=== PATIENT | female | born 1995 | race Caucasian/White ===

== ENCOUNTER → 2017-02-11 21:53 | Observation (INO) ==
[2017-02-11 20:11] LABS: Bilirubin,Urine Negative (Negative); Blood,Urine Negative (Negative); Clarity,Urine Cloudy (Clear); Color,Urine Yellow (Yellow); Glucose,Urine (UA) Normal (Normal); Ketones,Urine Negative (Negative); Leukocyte Esterase,Urine Moderate (Negative); Nitrite,Urine Negative (Negative); PH,Urine 6.5 pH Units (5.0-8.0); Protein,Urine Negative (Neg-Trace); Specific Gravity,Urine 1.006 (1.010-1.025); Urobilinogen,Urine Normal (Normal)
[2017-02-11 20:13] LABS: Bacteria,Urine Few per hpf (None-Few); Hyaline Casts,Urine None Seen per lpf (None-Few); Squamous Epithelial Cell,Urine Many per lpf (None-Few)
[2017-02-11 20:31] LABS: RBC,Urine 0-3 per hpf (0-3)
--- NOTE | 2017-02-11 20:50 | OB/GYN Progress Note ---
Date of Encounter: 02/11/17 Time of Encounter: 20:43 - Assessment and Plan (1) 30 weeks gestation of Current Visit: Yes Status: Acute (2) Uterine contractions Current Visit: Yes Status: Acute no contractions seen on monitor. Abdomen soft and non-tender to touch. no contractions palapated by CNM ekg monitor tech. cervical exam 0.5/long/posterior/-3 UA negative. Will recheck in 1 hour. if no change will discharge home. Discussed with Dr. Couch Subjective - Subjective Interval history: 3-+6 presents to triage with complaints of occasional contractions since 1700 this evening. Pt states she is feeling pain every 2-4 minutes that is sharp and takes her breath away. Reports good movement, denies vaginal bleeding, or leaking of fluid. No recent in intercourse. Antepartum ROS: new complaints, movement normal, contractions, no loss of fluid, no vaginal bleeding Objective - Vital Signs Vital Signs: Intake and Output 02/11/17 02/11/17 02/11/17 07:59 15:59 23:59 Other: Weight 74.2 kg Patient Weight 02/11/17 23:59 Weight 74.2 kg - Exam FHR: auscultation normal FHR comments: 150/moderate/+accels/-decels Abdomen: Present: soft, gravid Uterus: Present: normal Cervical dilation: 0.5/long/posterior/ -3 - Labs Labs: Abnormal lab results Urine Clarity Cloudy (Clear) A 02/11/17 20:00 Ur Specific [place] 1.006 (1.010-1.025) L 02/11/17 20:00 Ur Leukocyte Esterase Moderate (Negative) H 02/11/17 20:00 Urine Microscopic WBC 5-15 per hpf (0-3) H 02/11/17 20:00 Ur Squamous Epith Cells Many per lpf (None-Few) H 02/11/17 20:00 Ur Culture Indicated? YES (NO) A 02/11/17 20:00
== END | disposition home or self-care (01) ==
LOC: 1NENULAB
PROVIDERS: ADMIT Advanced Practice Midwife; ATTEND Advanced Practice Midwife

== ENCOUNTER → 2017-03-30 22:31 | Observation (INO) ==
[2017-03-30 20:16] LABS: Bilirubin,Urine Negative (Negative); Blood,Urine Negative (Negative); Clarity,Urine Cloudy (Clear); Color,Urine Yellow (Yellow); Glucose,Urine (UA) Normal (Normal); Ketones,Urine Negative (Negative); Leukocyte Esterase,Urine Moderate (Negative); Nitrite,Urine Negative (Negative); PH,Urine 6.5 pH Units (5.0-8.0); Protein,Urine Negative (Neg-Trace); Specific Gravity,Urine 1.007 (1.010-1.025); Urobilinogen,Urine Normal (Normal)
[2017-03-30 20:19] LABS: Bacteria,Urine Few per hpf (None-Few); Hyaline Casts,Urine None Seen per lpf (None-Few); RBC,Urine 0-3 per hpf (0-3); Squamous Epithelial Cell,Urine Many per lpf (None-Few); WBC,Urine 30-50 per hpf (0-3)
[2017-03-30 20:41] LABS: Amphetamine Screen,Urine Negative ng/mL (Cutoff=1000); Barbiturate Screen,Urine Negative ng/mL (Cutoff=200); Benzodiazepines Screen,Urine Negative ng/mL (Cutoff=200); Cannabinoid Screen,Urine Negative ng/mL (Cutoff = 50); Cocaine Screen,Urine Negative ng/mL (Cutoff= 300); Opiate Screen,Urine Negative ng/mL (Cutoff=300); Phencyclidine Screen,Urine Negative ng/mL (Cutoff=25)
--- NOTE | 2017-03-30 21:05 | OB/GYN Progress Note ---
Date of Encounter: 03/30/17 Time of Encounter: 21:03 - Assessment and Plan (1) 37 weeks gestation of Current Visit: Yes Status: Acute Admit to L&D for observation and labor evaluation. (2) Vaginal discharge during in third trimester Current Visit: Yes Status: Acute Nitrazine for ROM Vaginosis panel (3) Non-stress test reactive Current Visit: Yes Status: Acute FHR 135 bpm, moderate variability, +15x15 accels, no decels. Subjective - Subjective Principal diagnosis: Leakage of fluid, back pain Interval history: Pt is a 21 y/o at 37w4d arrived to unit with complaint of LOF since this AM , no color or odor. Also reports some lower back pain. Patient reports +FM. Denies any urinary symptoms, vaginal itching or burning. Antepartum ROS: loss of fluid, movement normal, no vaginal bleeding Objective - Vital Signs Vital Signs: Intake and Output 03/30/17 03/30/17 03/30/17 07:59 15:59 23:59 Other: Weight 76.657 kg Patient Weight 03/30/17 23:59 Weight 76.657 kg - Exam FHR: auscultation normal, category 1 FHR comments: 140 bpm, moderate variability, + 15x15 accels, no decels. Category 1 Tracing Auscultation: bilateral: normal Abdomen: Present: normal appearance, soft, gravid Uterus: Present: normal, firm Cervical dilation: 1-2 per RN Cervix effacement: 60% station: -1 Comments: Per RN. Negative nitrazine. Speculum exam: Negative pooling, moderate amount of thick white discharge noted. Vaginosis panel collected. - Labs Labs: Abnormal lab results Urine Clarity Cloudy (Clear) A 03/30/17 20:00 Ur Specific [place] 1.007 (1.010-1.025) L 03/30/17 20:00 Ur Leukocyte Esterase Moderate (Negative) H 03/30/17 20:00 Urine Microscopic WBC 30-50 per hpf (0-3) H 03/30/17 20:00 Ur Squamous Epith Cells Many per lpf (None-Few) H 03/30/17 20:00 Ur Culture Indicated? YES (NO) A 03/30/17 20:00
[2017-03-30 22:02] LABS: Candida DNA ***DETECTED*** (Not Detect); Gardnerella DNA ***DETECTED*** (Not Detect); Trichomonas DNA Not Detected (Not Detect)
--- NOTE | 2017-03-30 22:08 | Discharge Summary ---
Date of Encounter: 03/30/17 Time of Encounter: 22:08 - Discharge Diagnosis (1) 37 weeks gestation of Priority: Primary Status: Acute (2) Vaginal discharge during in third trimester Priority: Secondary Status: Acute Comments: Positive BV, Positive yeast (3) Non-stress test reactive Priority: Secondary Status: Acute - Discharge Medications Prescriptions: metroNIDAZOLE [Flagyl] 500 mg PO BID #14 tablet Terconazole [Terazol 3] 20 gm VG HS #1 cream.appl Home Medications: Vit #108/Iron/FA [ One Tablet] 1 tab PO DAILY 02/11/17 [History ] Terconazole [Terazol 3] 20 gm VG HS #1 cream.appl 03/30/17 [Rx] metroNIDAZOLE [Flagyl] 500 mg PO BID #14 tablet 03/30/17 [Rx] Allergies/Adverse Reactions: 3 Allergy/AdvReac Type Severity Reaction Status Date / Time No Known Allergies Allergy Verified 02/11/17 19:45 Data Procedures and tests throughout hospitalization: Laboratory Tests 03/30/17 03/30/17 03/30/17 20:00 20:00 21:03 Urine Color Yellow Urine Clarity Cloudy A Urine pH 6.5 Ur Specific [place] 1.007 L Urine Protein Negative Urine Glucose (UA) Normal Urine Ketones Negative Urine Blood Negative Urine Nitrite Negative Urine Bilirubin Negative Urine Urobilinogen Normal Ur Leukocyte Esterase Moderate H Urine Microscopic RBC 0-3 Urine Microscopic WBC 30-50 H Ur Squamous Epith Cells Many H Urine Bacteria Few Hyaline Casts None Seen Ur Culture Indicated? YES A Urine Opiates Screen Negative Ur Barbiturates Screen Negative Ur Phencyclidine Scrn Negative Ur Amphetamines Screen Negative U Benzodiazepines Scrn Negative Urine Cocaine Screen Negative U Marijuana (THC) Screen Negative [place] species DNA DETECTED A Gardnerella DNA Probe DETECTED A Trichomonas DNA Probe Not Detected Labs on day of discharge: Labs from last 24 hours 03/30/17 03/30/17 03/30/17 21:03 20:00 20:00 Urine Color Yellow Urine Clarity Cloudy A Urine pH 6.5 Ur Specific [place] 1.007 L Urine Protein Negative Urine Glucose (UA) Normal Urine Ketones Negative Urine Blood Negative Urine Nitrite Negative Urine Bilirubin Negative Urine Urobilinogen Normal Ur Leukocyte Esterase Moderate H Urine Microscopic RBC 0-3 Urine Microscopic WBC 30-50 H Ur Squamous Epith Cells Many H Urine Bacteria Few Hyaline Casts None Seen Ur Culture Indicated? YES A Urine Opiates Screen Negative Ur Barbiturates Screen Negative Ur Phencyclidine Scrn Negative Ur Amphetamines Screen Negative U Benzodiazepines Scrn Negative Urine Cocaine Screen Negative U Marijuana (THC) Screen Negative [place] species DNA DETECTED A Gardnerella DNA Probe DETECTED A Trichomonas DNA Probe Not Detected Date of admission: 03/30/17 19:47 Discharging clinician: Josephine Bass Anticipated date of discharge: 03/30/17 - Patient Status Disposition: Home, Self-Care Condition: Good Functional capacity at discharge: independent ambulation - Discharge Instructions Follow Up With: Shannan Alvarado MD [Partnered Physician] - - Diet and Activity Activity: resume usual activities as tolerated Diet: regular diet Hospital Course G[employer] MA[employer]TER Time Attestation: Total time spent providing and/or coordinating discharge services: Time Spent: Less than 30 minutes Exam - Other Additional findings: FHR 140 bpm, moderate variability, + 15x15 accels, no decels. Irregular contractions.
== END | disposition home or self-care (01) ==
LOC: 1NENULAB
PROVIDERS: ADMIT Obstetrics & Gynecology; ATTEND Obstetrics & Gynecology

== ENCOUNTER 2017-04-08 19:19 | Inpatient (IN) ==
[~2017-04-08 19:19] MED LIST: Famotidine 20 MG/2 ML VIAL IVP PRN; Naloxone 0.4 MG/ML INJ IVP PRN; Ondansetron 4 MG/2 ML VIAL IVP PRN
[2017-04-08] MEDS ORDERED: Ringers Solution, Lactated 1,000 ML IVC SCH (19:30)
[2017-04-08 19:52] LABS: Basophils % 0.3 %; Eosinophils % 0.5 %; Hematocrit 32.9 % (35.3-44.9); Immature Granulocytes % 0.8 % (0-4); Lymphocytes # 1.7 K/mcL (0.6-4.6); Lymphocytes % 22.6 %; Mean Corpuscular HGB Conc 30.4 g/dL (31.6-35.5); Mean Corpuscular Hemoglobin 23.4 pg (28.0-33.3); Monocytes # 0.5 K/mcL (0.0-1.3); Monocytes % 6.7 %; Neutrophils # 5.2 K/mcL (1.6-8.9); Platelet Count 284 K/mcL (140-400); Red Blood Count 4.27 M/mcL (3.82-4.97); Red Cell Distribution Width 13.3 % (11.5-14.5); Segmented Neutrophils % 69.1 %
[2017-04-08 20:09] LABS: Amphetamine Screen,Urine Negative ng/mL (Cutoff=1000); Barbiturate Screen,Urine Negative ng/mL (Cutoff=200); Benzodiazepines Screen,Urine Negative ng/mL (Cutoff=200); Cannabinoid Screen,Urine Negative ng/mL (Cutoff = 50); Cocaine Screen,Urine Negative ng/mL (Cutoff= 300); Opiate Screen,Urine Negative ng/mL (Cutoff=300); Phencyclidine Screen,Urine Negative ng/mL (Cutoff=25)
--- NOTE | 2017-04-08 20:20 | OB/GYN History & Physical ---
Date of Encounter: 04/08/17 Time of Encounter: 20:16 Assessment and Plan (1) 38 weeks gestation of Current visit: No Status: Acute Admit for labor. (2) Uterine contractions Current visit: No Status: Acute Admitted for labor at 38.6 wks (3) Susceptible to Varicella (non-immune), currently in third trimester Current visit: Yes Status: Acute Patient educated on Varicella vaccine. History of Present Illness Chief complaint: Contractions at 38w6d HPI: Ms. Snow is a 21 year old female at 38w6d comes in complaining of contractions that became more painful at 1800 this evening. Patient states she was dilated 3-4 cm at her appointment today. Patient reports + movement, denies bleeding and LOF. Pt states the contractions are 3-10 minutes apart. Blood Type A+ T-pallidum negative Rubella Immune Varicella Non-immune HbSAG negative GBS negative. Past Med Surg Social Fam HX - Past Medical History Source: patient Medical history: no medical history Psychiatric history: no psych history - Past Surgical History Surgical History: other (T&A as a child) - Social History Smoking Status: Former smoker Smokeless Tobacco Status: No Alcohol use: none Drug use: none Current living situation: Home - Independent Activity Level: Independent ambulation Recent Out of Country Travel Within the Last 8 Weeks: No Exposure or Possible Exposure to Illness During Travel: No - Family History Brother Adopted: No Family Member Ethnicity: Non- Living Status: Still Living Hx Family Cardiac Disorders: No Hx Family Respiratory Disorders: No Hx Family Cancer: No Hx Family GI Disorders: No Hx Family Endocrine Disorder: No Hx Family Neuromuscular Disorders: No Hx Family Neurologic Disorders: No Hx Family HEENT Disorders: No Hx Family Autoimmune Disorders: No Obstetrical History - Pregnancies : 2 Para: 1 Term: 0 : 0 Ab's: 0 Livin Medications and Allergies Vit #108/Iron/FA [ One Tablet] 1 tab PO DAILY 02/11/17 [History ] 3 Allergy/AdvReac Type Severity Reaction Status Date / Time No Known Allergies Allergy Verified 02/11/17 19:45 Review of System OB All systems PM: reviewed and no additional remarkable complaints except as stated Exam - Constitutional Constitutional: well developed, well nourished, no acute distress - HEENT HEENT: Other (poor dentition) - Neck Neck exam: full ROM, normal inspection - Lungs Respiratory exam: CTAB - Cardiovascular Cardiovascular exam: RRR, +S1, +S2 - Abdomen Abdomen: Present: bowel sounds normal, gravid, non tender - Extremities Extremities exam: normal capillary refill, normal inspection - Cervix Dilation: 5 Effacement: 70 Station: -1 - Comments Comments: FHR 170 bpm moderate variability +15x15 accels no decels noted. contractions irregular. Dr. Jorge notified of patient. Will admit. Start IV fluids. Results Result Diagrams: 04/08/17 19:35 Abnormal lab results Hgb 10.0 g/dL (11.5-15.4) L 04/08/17 19:35 Hct 32.9 % (35.3-44.9) L 04/08/17 19:35 MCV 77.0 fL (83.0-100.0) L 04/08/17 19:35 MCH 23.4 pg (28.0-33.3) L 04/08/17 19:35 MCHC 30.4 g/dL (31.6-35.5) L 04/08/17 19:35 All other labs normal. - VTE Reasons for not Prescribing Prophylaxis: Treatment not Indicated - Low risk for VTE
--- NOTE | 2017-04-08 21:14 | OB Labor Progress Note ---
Date of Encounter: 04/08/17 Time of Encounter: 21:11 Labor Progress Note - Subjective Subjective: Patient resting in bed. Patient reports contractions are getting stronger. - Cervix Cervix: 7.5/100/0 - Heart Tones Heart Tones: 160 bpm moderate variability +15x15 accels no decels noted. - Crouch Crouch: 4-5 min apart - Interventions Interventions: SVE, AROM moderate amount of clear fluid noted. Patient tolerate well. - Plan Plan: Continue labor management.
[2017-04-08] MEDS ORDERED: Lidocaine 1% 20 ML MDV ONE (21:36)
[2017-04-08] MEDS ORDERED: miSOPROStol 100 MCG TABLET PO STA (22:51)
--- NOTE | 2017-04-08 22:58 | OB/GYN Procedure Note ---
Delivery - Delivery Date: 04/08/17 Provider: Josephine Bass ([facility]) Intrapartum events: none Delivery induction: none Delivery augmentation: rupture of membranes Delivery monitor: external FHT, external uterine Anesthesia: local Estimated Blood Loss: 100 - Infant (s) A Delivery Date: 04/08/17 Delivery Time: 22:33 Presentation: vertex Position: OA Route of delivery: Gender: Female Viability: Viable Pounds: 6 Ounces: 5 Weight Gram: 2865 kg at 1 minute: 8 at 5 mins: 9 Shoulder Dystocia: not encountered Placenta: spontaneous Cord: 3 umbilical vessels - Repair Episiotomy: none Laceration Description: Perineal - 1st Degree (repaired with 3-0 vicryl) - Complications Delivery complications: none Delivery comments: Under maternal effort, viable female delivered spontaneously over 1st degree perineal laceration repaired with 3-0 Vicryl. to maternal abdomen for drying and stimulation. Cord clamped and cut after pulsation ceased. Spontaneous delivery of intact placenta. EBL 100 mL. No meconium or shoulder dystocia encountered. Mom and in stable condition for 2 hour recovery. All counts correct. Patient's IV infiltrated during delivery. 400 mcg po Cytotec given. - Disposition Mom disposition: stable in LDR [place] disposition: stable in LDR
[2017-04-09] MEDS ORDERED: Acetaminophen 325 MG TABLET PO PRN (01:51)
[2017-04-09] MEDS ORDERED: *HR* HYDROcodone/Acet 5/325 mg TABLET PO PRN (01:51)
[2017-04-09] MEDS ORDERED: Oxytocin 20 units/ LR 1000 mL 20 UNIT/1,000 ML BAG IVC SCH (01:51)
[2017-04-09] MEDS: Ibuprofen 600 MG TABLET PO PRN ×3 (03:17→20:12)
[2017-04-09] MEDS: Prenatal Vit/FA 1 EACH TABLET PO SCH (09:04)
--- NOTE | 2017-04-09 11:56 | OB/GYN Progress Note ---
Date of Encounter: 04/09/17 Time of Encounter: 11:55 - Assessment and Plan (1) Vaginal delivery Current Visit: Yes Status: Acute Pt meeting day 1 milestones. Anticipate discharge home PPD#2. Subjective - Subjective Interval history: Pt meeting PPD#1 milestones. She denies complaints today. Patient reports: appetite normal, voiding normally, pain well controlled, ambulating normally [place]: doing well Objective - Latest Vital Signs Latest vital signs: Vital Signs Temp Pulse Pulse Resp BP Pulse Ox 04/09/17 09:42 98.1 F 77 80 16 112/77 04/09/17 03:19 98.4 F 74 14 107/72 98 04/09/17 02:30 99.2 F 67 16 138/87 97 04/09/17 01:20 99.8 F H 67 14 123/81 98 Intake and Output 04/08/17 04/09/17 04/09/17 23:59 07:59 15:59 Output Total 300 / 300 450 / 450 Balance -300 / -300 -450 / -450 Output: Urine 300 / 300 450 / 450 Other: Weight 76.1 kg 71.781 kg Patient Weight 04/09/17 23:59 Weight 71.781 kg - Exam Lungs: bilateral: normal Chest: Normal S1, Normal S2 Extremities: Present: normal Abdomen: Present: soft Uterus: Present: firm - Labs Labs: Laboratory Results - last 24 hr 04/08/17 04/08/17 19:35 19:35 WBC 7.5 RBC 4.27 Hgb 10.0 L Hct 32.9 L MCV 77.0 L MCH 23.4 L MCHC 30.4 L RDW 13.3 Plt Count 284 MPV 10.0 Immature Gran % 0.8 Seg Neutrophils % 69.1 Lymphocytes % 22.6 Monocytes % 6.7 Eosinophils % 0.5 Basophils % 0.3 Neutrophils # 5.2 Lymphocytes # 1.7 Monocytes # 0.5 Eosinophils # 0.0 Basophils # 0.0 Urine Opiates Screen Negative Ur Barbiturates Screen Negative Ur Phencyclidine Scrn Negative Ur Amphetamines Screen Negative U Benzodiazepines Scrn Negative Urine Cocaine Screen Negative U Marijuana (THC) Screen Negative
[2017-04-10] MEDS: Ibuprofen 600 MG TABLET PO PRN (08:03)
[2017-04-10] MEDS: Prenatal Vit/FA 1 EACH TABLET PO SCH (08:03)
--- NOTE | 2017-04-10 08:21 | Discharge Summary ---
Date of Encounter: 04/10/17 Time of Encounter: 08:19 - Discharge Diagnosis (1) Status post vaginal delivery Priority: Primary Status: Acute Comments: s/p , PPD#2 patient doing well, ok for discharge - Discharge Medications Home Medications: Vit #108/Iron/FA [ One Tablet] 1 tab PO DAILY 02/11/17 [History ] Allergies/Adverse Reactions: 3 Allergy/AdvReac Type Severity Reaction Status Date / Time No Known Allergies Allergy Verified 02/11/17 19:45 Data Procedures and tests throughout hospitalization: Laboratory Tests 04/08/17 04/08/17 19:35 19:35 WBC 7.5 RBC 4.27 Hgb 10.0 L Hct 32.9 L MCV 77.0 L MCH 23.4 L MCHC 30.4 L RDW 13.3 Plt Count 284 MPV 10.0 Immature Gran % 0.8 Seg Neutrophils % 69.1 Lymphocytes % 22.6 Monocytes % 6.7 Eosinophils % 0.5 Basophils % 0.3 Neutrophils # 5.2 Lymphocytes # 1.7 Monocytes # 0.5 Eosinophils # 0.0 Basophils # 0.0 Urine Opiates Screen Negative Ur Barbiturates Screen Negative Ur Phencyclidine Scrn Negative Ur Amphetamines Screen Negative U Benzodiazepines Scrn Negative Urine Cocaine Screen Negative U Marijuana (THC) Screen Negative Date of admission: 04/08/17 19:19 Primary care physician: PCP NONE - Patient Status Disposition: Home, Self-Care Condition: Good Functional capacity at discharge: independent ambulation Overall status at discharge: patient is progressing back to baseline - Discharge Instructions Follow Up With: NONE,PCP [Primary Care Provider] - Hospital Course IMPLEMENTATION LEAD Time Attestation: Total time spent providing and/or coordinating discharge services: Exam - Constitutional Vitals: Temp Pulse Resp BP Pulse Ox 98.1 F 77 16 117/79 98 04/09/17 20:00 04/09/17 20:00 04/09/17 20:00 04/09/17 20:00 04/09/17 20:00 General appearance IM: A&O X 3 - Respiratory Respiratory exam: Present: CTAB - Cardiovascular Cardiovascular exam IM: Present: RRR - GI/Abdominal GI/Abdominal exam IM: normal bowel sounds - VTE Reasons for not Prescribing Prophylaxis: Treatment not Indicated - Low risk for VTE
[2017-04-10 08:39] VITALS: BP 111/74
== END 2017-04-10 12:55 | disposition home or self-care (01) | DRG 560 ==
LOC: 1NENULAB → 1NENUOBS 04-09 01:21
PROVIDERS: ADMIT Obstetrics & Gynecology; ATTEND Obstetrics & Gynecology

== ENCOUNTER → 2019-11-13 18:21 | Observation (INO) ==
[2019-11-13 18:04] LABS: Bilirubin,Urine Negative (Negative); Blood,Urine Negative (Negative); Clarity,Urine Cloudy (Clear); Color,Urine Yellow (Yellow); Glucose,Urine (UA) Normal (Normal); Ketones,Urine Negative (Negative); Leukocyte Esterase,Urine Large (Negative); Nitrite,Urine Negative (Negative); Protein,Urine Negative (Neg-Trace); Specific Gravity,Urine 1.013 (1.010-1.025); Urobilinogen,Urine Normal (Normal)
[2019-11-13 18:06] LABS: Bacteria,Urine None Seen per hpf (None-Few); Hyaline Casts,Urine None Seen per lpf (None-Few); RBC,Urine 0-3 per hpf (0-3); Squamous Epithelial Cell,Urine Many per lpf (None-Few); WBC,Urine 50-100 per hpf (0-3)
== END | disposition home or self-care (01) ==
LOC: 1NENULAB
PROVIDERS: ADMIT Obstetrics & Gynecology; ATTEND Obstetrics & Gynecology